=== PATIENT | female | born 1945 | race Caucasian/White ===

== ENCOUNTER 2017-02-27 22:45 | Inpatient (IN) | payer OTHER ==
[~2017-02-27] VITALS: Ht 162.6 cm; Wt 65.3 kg
[2017-02-27] MEDS ORDERED: FUROSEMIDE 40 MG/4 ML VIAL IV STA (22:52)
--- NOTE | 2017-02-27 22:55 | EMERGENCY ROOM VISIT NOTE ---
History Report prepared by Scribe: Florencia Naylor Under the Supervision of: Dr. Cedric Donald D.O. First contact with patient: 22:46 Stated Complaint: SOB History of Present Illness The patient is a 71 year old female who presents to the Emergency Room with complaints of worsening shortness of breath since 1899 this evening. She was brought to the ED via EMS. She states she called her son and told him that she was having trouble breathing, and he called an ambulance for her. Nursing reports she was diagnosed with CHF in November and had her Lasix discontinued last week. She does not wear Oxygen at home. She states she was "sick and vomiting recently" and reports she had a fever that has now resolved. She denies any chest pain. She also complains of feeling increasingly weak. Source of History: patient Onset: 1899 today Position: chest Timing: worsening Associated Symptoms: + fevers, + vomiting, + weakness Review of Systems See HPI for pertinent positives and negatives. A total of ten systems were reviewed and were otherwise negative. Past Medical & Surgical Medical Problems: (1) CHF (congestive heart failure) Social History Alcohol Use: none Drug Use: none Marital Status: Housing Status: lives with family Occupation Status: retired Current/Historical Medications Scheduled Aspirin (Aspirin Ec), 81 MG PO DAILY Ferrous Sulfate (Ferrous Sulfate), 325 MG PO BID Gabapentin (Neurontin), 1 CAP PO TID Linagliptin (Tradjenta), 1 TAB PO DAILY Metformin Hcl (Glucophage Ext Rel), 1 TAB PO DAILY Allergies Coded Allergies: No Known Allergies (Unverified , 02/27/17) Physical Exam Vital Signs Date Time Temp Pulse Resp B/P (MAP) Pulse Ox O2 Delivery O2 Flow Rate FiO2 02/27/17 23:02 112 02/27/17 22:55 92 Nasal Cannula 2.0 02/27/17 22:55 36.7 107 22 160/119 91 Nasal Cannula 2.0 02/27/17 22:55 92 Nasal Cannula 2.0 02/27/17 22:55 Nasal Cannula 2.0 91 Physical Exam GENERAL: Awake, alert, well-appearing, in no distress HENT: Normocephalic, atraumatic. Oropharynx unremarkable. EYES: Normal conjunctiva. Sclera non-icteric. NECK: Supple. No nuchal rigidity. FROM. No JVD. RESPIRATORY: Crackles. CARDIAC: Tachycardic heart rate, normal rhythm. Extremities warm and well perfused. Pulses equal. ABDOMEN: Soft, non-distended. No tenderness to palpation. No rebound or guarding. No masses. RECTAL: Deferred. MUSCULOSKELETAL: Chest examination reveals no tenderness. The back is symmetrical on inspection without obvious abnormality. There is no CVA tenderness to palpation. No joint edema. LOWER EXTREMITIES: Calves are equal size bilaterally and non-tender. Mild edema in LE, calves are nontender. No discoloration. NEURO: Normal sensorium. No sensory or motor deficits noted. SKIN: No rash or jaundice noted. Medical Decision & Procedures ER Provider Diagnostic Interpretation: X ray results as stated below per my interpretation and interpretation. CHEST X-RAY Pacemaker in place. Sternal wires present. Moderate CHF seen on X-Ray. Laboratory Results 02/27/17 23:00 Red Blood Count 4.64, Mean Corpuscular Volume 87.3, Mean Corpuscular Hemoglobin 29.3, Mean Corpuscular Hemoglobin Concent 33.6, Mean Platelet Volume 11.0, Neutrophils (%) (Auto) 76.9, Lymphocytes (%) (Auto) 15.4, Monocytes (%) (Auto) 5.2, Eosinophils (%) (Auto) 1.5, Basophils (%) (Auto) 0.7, Neutrophils # (Auto) 8.22, Lymphocytes # (Auto) 1.64, Monocytes # (Auto) 0.56, Eosinophils # (Auto) 0.16, Basophils # (Auto) 0.07 02/27/17 23:00 Test 02/27/17 23:00 White Blood Count 10.68 K/uL (4.8-10.8) Red Blood Count 4.64 M/uL (4.2-5.4) Hemoglobin 13.6 g/dL (12.0-16.0) Hematocrit 40.5 % (37-47) Mean Corpuscular Volume 87.3 fL (80-100) Mean Corpuscular Hemoglobin 29.3 pg (25-34) Mean Corpuscular Hemoglobin Concent 33.6 g/dl (32-36) Platelet Count 253 K/uL (130-400) Mean Platelet Volume 11.0 fL (7.4-10.4) Neutrophils (%) (Auto) 76.9 % Lymphocytes (%) (Auto) 15.4 % Monocytes (%) (Auto) 5.2 % Eosinophils (%) (Auto) 1.5 % Basophils (%) (Auto) 0.7 % Neutrophils # (Auto) 8.22 K/uL (1.4-6.5) Lymphocytes # (Auto) 1.64 K/uL (1.2-3.4) Monocytes # (Auto) 0.56 K/uL (0.11-0.59) Eosinophils # (Auto) 0.16 K/uL (0-0.5) Basophils # (Auto) 0.07 K/uL (0-0.2) RDW Standard Deviation 53.6 fL (36.4-46.3) RDW Coefficient of Variation 17.2 % (11.5-14.5) Immature Granulocyte % (Auto) 0.3 % Immature Granulocyte # (Auto) 0.03 K/uL (0.00-0.02) Anion Gap 13.0 mmol/L (3-11) Est Creatinine Clear Calc Drug Dose 40.6 ml/min Estimated GFR () 53.0 Estimated GFR (Non- 45.7 BUN/Creatinine Ratio 24.0 (10-20) Calcium Level 9.5 mg/dl (8.5-10.1) Total Bilirubin 1.0 mg/dl (0.2-1) Aspartate Amino Transf (AST/SGOT) 27 U/L (15-37) Alanine Aminotransferase (ALT/SGPT) 32 U/L (12-78) Alkaline Phosphatase 94 U/L (45-117) Troponin I 0.049 ng/ml (0-0.045) Pro-B-Type Natriuretic Peptide 24517 pg/ml (0-900) Total Protein 8.5 gm/dl (6.4-8.2) Albumin 4.1 gm/dl (3.4-5.0) Globulin 4.4 gm/dl (2.5-4.0) Albumin/Globulin Ratio 0.9 (0.9-2) Laboratory results reviewed by me Medications Administered Medications (Trade) Dose Ordered Sig/Karley Route Start Time Stop Time Status Last Admin Dose Admin Furosemide (Lasix Inj) 40 mg NOW STAT IV 02/27/17 22:52 02/27/17 22:54 DC 02/27/17 23:02 40 MG Aspirin (Aspirin Chew) 324 mg NOW STAT PO 02/27/17 23:21 02/27/17 23:23 DC 02/27/17 23:37 324 MG ECG Indication: SOB/dyspnea Rate (beats per minute): 114 Rhythm: sinus tachycardia Findings: no acute ischemic change, left axis deviation, other (paced rhythm) ED Course 2246: The patient was evaluated in room A12B. A complete history and physical exam was performed. 2252: Lasix 40 mg IV. 2321: Aspirin 324 mg PO. 0049: I [facility] the [facility] The patient will be further evaluated. Medical Decision The differential diagnoses considered include CHF, pneumonia, COPD, bronchitis and anemia. Patient was found to have an elevated BNP, almost positive troponin and a chest x-ray consistent with moderate congestive heart failure. Patient was started on IV Lasix, aspirin in the emergency department. Patient remained in stable condition throughout evaluation. The case was discussed with the [place] hospitalist for admission at 12:52 AM Medication Reconcilliation Current Medication List: was personally reviewed by me Blood Pressure Screening Patient's blood pressure: Elevated blood pressure Blood pressure disposition: Referred to PCP Consults Time Called: 44 Consulting Physician: [facility] Returned Call: 48 I discussed the patients case with Harvinder Cartwright. The patient will be further evaluated. Impression Primary Impression: Congestive heart failure Scribe Attestation The scribe's documentation has been prepared under my direction and personally reviewed by me in its entirety. I confirm that the note above accurately reflects all work, treatment, procedures, and medical decision making performed by me. Departure Information Dispostion Being Evaluated By Hospitalist Referrals No Doctor, Assigned (PCP)
[2017-02-27] MEDS ORDERED: FRRS300 PO (23:18)
[2017-02-27] MEDS ORDERED: ASPI81TA28 PO (23:18)
[2017-02-27] MEDS ORDERED: GABA-112 PO (23:18)
[2017-02-27] MEDS ORDERED: METF1TAB53 PO (23:19)
[2017-02-27] MEDS ORDERED: LINA1TAB PO (23:20)
[2017-02-27] MEDS ORDERED: ASPIRIN 81 MG CHEW PO STA (23:21)
[2017-02-27 23:43] LABS: BASO % 0.7 %; BASO ABS # 0.07 K/uL (0-0.2); COMPLETE YES; EOS % 1.5 %; HEMATOCRIT 40.5 % (37-47); IG% 0.3 %; LYMPH % 15.4 %; LYMPH ABS # 1.64 K/uL (1.2-3.4); MEAN CELL VOLUME 87.3 fL (80-100); MEAN CORPUSCULAR HEMOGLOBIN 29.3 pg (25-34); MEAN CORPUSCULAR HGB CONC 33.6 g/dl (32-36); MONO % 5.2 %; NEUT % 76.9 %; PLATELET COUNT 253 K/uL (130-400); RED BLOOD COUNT 4.64 M/uL (4.2-5.4); WHITE BLOOD COUNT 10.68 K/uL (4.8-10.8)
[2017-02-27 23:53] LABS: CALCIUM 9.5 mg/dl (8.5-10.1); CREATININE 1.18 mg/dl (0.60-1.20); POTASSIUM 4.1 mmol/L (3.5-5.1)
[2017-02-28] VITALS (7 sets, daily range): BP systolic 108–152; BP diastolic 60–70; PULSE 81–102; TEMP 36.5–37.3; O2SAT 91–95; Ht 162.6 cm; Wt 65.3 kg
[2017-02-28 00:37] LABS: ALB/GLOB RATIO 0.9 (0.9-2)
[2017-02-28 01:37] LABS: MAGNESIUM 2.3 mg/dl (1.8-2.4); THYROID STIMULATING HORMONE 3.37 uIu/ml (0.300-4.500)
[2017-02-28 01:38] LABS: PARTIAL THROMBOPLASTIN RATIO 1.1
[2017-02-28] MEDS ORDERED: LEVALBUTEROL/IPRATROPIUM NEB INH STA (01:52)
[2017-02-28] MEDS ORDERED: GLUCOSE 10 TABS/TUBE PO PRN (02:00)
[2017-02-28] MEDS ORDERED: DEXTROSE 50% 50 ML SYR IV PRN (02:00)
[2017-02-28] MEDS ORDERED: LEVALBUTEROL/IPRATROPIUM NEB INH PRN (02:00)
[2017-02-28] MEDS ORDERED: TRAMADOL HCL 50 MG TAB PO PRN (02:00)
[2017-02-28] MEDS ORDERED: NITROGLYCERIN 0.4 MG SL PER TAB CHARGE SL PRN (02:00)
[2017-02-28] MEDS ORDERED: GLUCOSE 40% GEL 15 GM TUBE PO PRN (02:00)
[2017-02-28] MEDS ORDERED: GLUCAGON FOR INJ 1 MG VIAL SQ PRN (02:00)
[2017-02-28] MEDS ORDERED: MoRPHine SULFATE 4 MG/ML 1 ML CARP\\VIAL IV PRN (02:00)
[2017-02-28] MEDS ORDERED: PROCHLORPERAZINE INJ 5 MG in SYRINGE 4 ML IV PRN (02:00)
[2017-02-28] MEDS ORDERED: ACETAMINOPHEN 325 MG TAB PO PRN (02:00)
[2017-02-28] MEDS ORDERED: INSULIN ASPART 100 UNITS/ML 3 ML PEN SC STA (02:10)
[2017-02-28] MEDS ORDERED: INSULIN GLARGINE SOLOSTAR 100 UNITS/ML 3 ML PEN SC STA (02:10)
[2017-02-28] MEDS ORDERED: LEVALBUTEROL 1.25MG/0.5ML NEB INH STA (02:11)
[2017-02-28] MEDS ORDERED: IPRATROPIUM BROMIDE NEB SOLN 0.02% 2.5 ML VIAL INH STA (02:11)
[2017-02-28] MEDS ORDERED: METOPROLOL TARTRATE 25 MG TAB PO STA (02:12)
[2017-02-28] MEDS ORDERED: LEVALBUTEROL 1.25MG/0.5ML NEB INH PRN (02:15)
[2017-02-28] MEDS ORDERED: IPRATROPIUM BROMIDE NEB SOLN 0.02% 2.5 ML VIAL INH PRN (02:15)
[2017-02-28] MEDS: IPRATROPIUM BROMIDE NEB SOLN 0.02% 2.5 ML VIAL INH SCH ×3 (02:31→14:34)
[2017-02-28] MEDS: LEVALBUTEROL 1.25MG/0.5ML NEB INH SCH ×3 (02:31→14:34)
--- NOTE | 2017-02-28 03:45 | HISTORY & PHYSICAL EXAMINATION ---
DATE OF ADMISSION: 02/28/2017 PRIMARY CARE PHYSICIAN: [facility]. CHIEF COMPLAINT: Shortness of breath. HISTORY OF PRESENT ILLNESS: History obtained from patient and records. Medical history is significant for chronic systolic heart failure secondary to ischemic cardiomyopathy, EF of 45% sp ICD from a 2D echo from 2000, CAD status CABG, hypertension, hyperlipidemia, DM2 on oral meds, past tobacco abuse Patient was seen by her lung specialist 2 weeks ago. Lasix stopped because it was felt it was not needed anymore. Yesterday patient noted increasing shortness of breath even at rest, no swelling, no chest pain. Usual cough symptoms. Patient brought to Emergency Room. Received Lasix for CHF. Currently feeling better. MEDICAL HISTORY: As above. Her lead software engineer is Dr. Villavicencio. SURGERIES: She had CABG, ICD placement, hysterectomy. HOME MEDICATIONS: aspirin, ferrous sulfate, Neurontin, linagliptin, metformin. (Partial list as patient cannot recall rest of medications.) ALLERGIES: No drug allergies. FAMILY HISTORY: Heart disease. PERSONAL AND SOCIAL HISTORY: Past tobacco, no chronic intake of alcoholic beverages. Retired factory employee. REVIEW OF SYSTEMS: As per HPI, all 10 systems reviewed. All other ROS negative. PHYSICAL EXAMINATION: VITAL SIGNS: Blood pressure was noted to be 160/119, later 130/86, pulse rate 105, RR 20, temperature 36.7, sats 92 on 2L nasal cannula. GENERAL: Noted to be slightly anxious, no respiratory distress. SKIN: Normal color. Warm. HEENT: [place] palpebral conjuctivae. No ptosis, dry buccal mucosa Nasal cannula in place. NECK: JVD, supple. No tenderness. CHEST: Decreased breath sounds. No tenderness. HEART: RRR, Systolic murmur. ABDOMEN: Soft, nontender. EXTREMITIES: Minimal LE edema, no tenderness. No gross deformity. NEUROLOGIC: Coherent. No gross focality. LABORATORY DATA: Hemoglobin was noted to be 13.6, hematocrit 40.5, white cell count 10.68, platelets noted to be 250. Sodium noted to be 140, potassium 4.1, chloride 110, CO2 18, BUN 22, creatinine 1.18, glucose 183. Troponin 0.049. BNP 15,000. EKG as per my interpretation, rate 115, sinus tachycardia, LAD, LAFB, right bundle branch block, LVH, ST depression in the lateral leads, PRWP Chest x-ray as per my interpretation cardiomegaly, CHF ASSESSMENT: 1. Acute hypoxemic respiratory failure secondary to decompensated heart failure hx ischemic cardiomyopathy EF of 35-45%, (TTE 2000) hx ICD History CAD status post CABG home Lasix discontinued a few weeks ago by patient's solderer furnace. 2. troponin elevation secondary to above 3. HTN, initially elevated upon arrival at the ER, currently improved after Lasix administration 4. DM2 on oral meds. Elevated serum glucose on admission blood work. Unknown baseline control. 5. Past tobacco abuse. PLAN: PCU supplemental O2 diuretic therapy. Low-dose beta aretha until complete list of home meds available for reconciliation Follow troponin. strict IOs, daily weights, CHF education TTE, cardiology consult RE decompensated heart failure Obtain recent outpatient cardiology, PCP records. ISS BG goal 140-180. May need basal Lantus to attain goal. Check hemoglobin A1c. DVT prophylaxis, Lovenox subQ. Code status level 3. Okay with CPR, no intubation. MTDD
[2017-02-28 03:55] LABS: INR 1.1 (0.9-1.1)
[2017-02-28] MEDS ORDERED: PERFLUTREN LIPID MICROSPHERE (DEFINITY) IV ONE (06:47)
[2017-02-28 06:55] LABS: BASO % 0.6 %; BASO ABS # 0.05 K/uL (0-0.2); COMPLETE YES; EOS % 0.8 %; HEMATOCRIT 39.8 % (37-47); IG% 0.1 %; LYMPH % 26.7 %; LYMPH ABS # 2.23 K/uL (1.2-3.4); MEAN CELL VOLUME 87.9 fL (80-100); MEAN CORPUSCULAR HEMOGLOBIN 28.5 pg (25-34); MEAN CORPUSCULAR HGB CONC 32.4 g/dl (32-36); MEAN PLATELET VOLUME 10.5 fL (7.4-10.4); MONO % 5.9 %; NEUT % 65.9 %; PLATELET COUNT 245 K/uL (130-400); RED BLOOD COUNT 4.53 M/uL (4.2-5.4); WHITE BLOOD COUNT 8.36 K/uL (4.8-10.8)
[2017-02-28 07:31] LABS: BUN/CREATININE RATIO 27.1 (10-20); CALCIUM 9.3 mg/dl (8.5-10.1); CREATININE 1.13 mg/dl (0.60-1.20); POTASSIUM 3.8 mmol/L (3.5-5.1)
[2017-02-28 07:44] LABS: CHOLESTEROL/HDL RATIO 3.6
--- NOTE | 2017-02-28 08:17 | DIAGNOSTIC IMAGING REPORT ---
SINGLE VIEW CHEST CLINICAL HISTORY: Dyspnea. FINDINGS: An AP, portable, upright chest radiograph is obtained. No prior studies are available for comparison at the time of dictation. The examination is degraded by portable technique and patient rotation. A 2-lead cardiac AICD partially obscures the left mid chest. The patient is status post midline sternotomy. The heart is enlarged. There is pulmonary vascular congestion with mild interstitial edema. Trace pleural effusions are suspected. No pneumothorax is seen. The skeletal structures are osteopenic. The bony thorax is grossly intact. IMPRESSION: 1. Cardiomegaly and AICD. There is evidence of congestive failure and interstitial edema. 2. Suspect trace pleural effusions. Electronically signed by: Narinder Lewis M.D. 02/28/2017 8:15 AM Dictated Date/Time: 02/28/2017 8:14 AM
[2017-02-28] MEDS: INSULIN ASPART 100 UNITS/ML 3 ML PEN SC SCH ×4 (08:28→20:35)
[2017-02-28] MEDS: FUROSEMIDE INJ 40 MG in SYRINGE 0 ML IV SCH ×2 (08:29→20:35)
[2017-02-28] MEDS: FERROUS SULFATE 325 MG TAB PO SCH ×2 (08:32→20:34)
[2017-02-28] MEDS: ASPIRIN 81 MG ECTAB PO SCH (08:32)
[2017-02-28] MEDS: ENOXAPARIN 40 MG/0.4 ML SYR SC SCH (08:33)
[2017-02-28] MEDS ORDERED: LEVALBUTEROL/IPRATROPIUM NEB INH SCH (09:00)
--- NOTE | 2017-02-28 10:58 | ECHOCARDIOGRAM REPORT ---
*NOTICE TO RECEIVING LIBERTARIAN AGENCY This information is strictly Confidential and protected under [place] law. [place] law prohibits you from making any further disclosure of this information unless further disclosure is expressly permitted by the written consent of the person to whom it pertains or is authorized by law. A general authorization for the release of medical or other information is not sufficient for this purpose. Hospital accepts no responsibility if the information is made available to any other person, INCLUDING THE PATIENT. Interpretation Summary * Name: MAYDA BARTLETT Study Date: 02/28/2017 06:18 AM BP: 152/67 mmHg * Patient Location: .2E\S\E205\S\1 HR: 102 * : 1945 (M/d/yyyy) Gender: Female Height: 63 in * Age: 71 yrs Ethnicity: [place] Weight: 160 lb * Ordering Physician: Jj Bellamy * Performed By: Geovanna Cano RDCS * * Reason For Study: CHF * BSA: 1.8 m2 * The study was technically adequate. * There is no comparison study available. * -- Conclusions -- * Left ventricular systolic function is severely reduced. * Ejection Fraction = 15-20%. * There is mild concentric left ventricular hypertrophy. * There is severe global hypokinesis of the left ventricle. * The right ventricle is moderately dilated. * The right ventricular systolic function is moderately reduced. * The left atrium is moderately dilated. * There is moderate mitral regurgitation. * There is moderate tricuspid regurgitation. * The estimated systolic PAP is 42mmHg. Procedure Details * A complete two-dimensional transthoracic echocardiogram was performed (2D, M-mode, Doppler and color flow Doppler). Left Ventricle * The left ventricle is moderately dilated. * There is no thrombus. * There is mild concentric left ventricular hypertrophy. * Left ventricular systolic function is severely reduced. * Ejection Fraction = 15-20%. * There is severe global hypokinesis of the left ventricle. Right Ventricle * The right ventricle is moderately dilated. * There is a pacemaker lead in the right ventricle. * The right ventricular systolic function is moderately reduced. Atria * The left atrium is moderately dilated. * The right atrium is mildly dilated. Mitral Valve * The mitral valve leaflets appear thickened, but open well. * There is no mitral valve stenosis. * There is moderate mitral regurgitation. Tricuspid Valve * The tricuspid valve is not well visualized, but is grossly normal. * There is no tricuspid stenosis. * There is moderate tricuspid regurgitation. * The estimated systolic PAP is 42mmHg. Aortic Valve * The aortic valve is trileaflet. * No hemodynamically significant valvular aortic stenosis. * There is no significant aortic regurgitation. Pulmonic Valve * The pulmonary valve is not well seen, but the Doppler examination is normal without significant regurgitation or stenosis. Great Vessels * The aortic root is normal size. Pericardium/Pleural * There is no pericardial effusion. Left Ventricular Diastolic Function * Pulse wave TDI of the anterior and posterior mitral annulas demonstrates abnormal LV relaxation MMode 2D Measurements and Calculations IVSd 1.2 cm IVSs 1.7 cm LVIDd 5.2 cm LVIDs 4.2 cm LVPWd 1.2 cm LVPWs 1.1 cm IVS/LVPW 0.96 FS 18.7 % EDV(Teich) 129.0 ml ESV(Teich) 79.5 ml EF(Teich) 38.4 % EDV(cubed) 139.9 ml ESV(cubed) 75.2 ml EF(cubed) 46.3 % % IVS thick 42.5 % % LVPW thick -7.65 % LV mass(C)d 246.7 grams LV mass(C)dI 140.3 grams/m\S\2 LV mass(C)s 225.4 grams LV mass(C)sI 128.1 grams/m\S\2 SV(Teich) 49.5 ml SI(Teich) 28.1 ml/m\S\2 SV(cubed) 64.7 ml SI(cubed) 36.8 ml/m\S\2 ACS 1.0 cm LA dimension 4.6 cm asc Aorta Diam 2.5 cm LVOT diam 2.1 cm LVOT area 3.4 cm\S\2 LVAd ap4 40.8 cm\S\2 LVLd ap4 8.1 cm EDV(MOD-sp4) 167.4 ml EDV(sp4-el) 175.7 ml LVAs ap4 34.2 cm\S\2 LVLs ap4 7.6 cm ESV(MOD-sp4) 125.1 ml ESV(sp4-el) 130.3 ml EF(MOD-sp4) 25.2 % EF(sp4-el) 25.8 % LVAd ap2 42.9 cm\S\2 LVLd ap2 8.0 cm EDV(MOD-sp2) 188.6 ml EDV(sp2-el) 196.2 ml LVAs ap2 35.6 cm\S\2 LVLs ap2 7.6 cm ESV(MOD-sp2) 139.5 ml ESV(sp2-el) 141.1 ml EF(MOD-sp2) 26.1 % EF(sp2-el) 28.1 % LVLd %diff -1.15 % EDV(MOD-bp) 178.4 ml LVLs %diff -0.10 % ESV(MOD-bp) 133.1 ml EF(MOD-bp) 25.4 % SV(MOD-sp4) 42.3 ml SI(MOD-sp4) 24.0 ml/m\S\2 SV(MOD-sp2) 49.2 ml SI(MOD-sp2) 27.9 ml/m\S\2 SV(MOD-bp) 45.3 ml SI(MOD-bp) 25.8 ml/m\S\2 SV(sp4-el) 45.3 ml SI(sp4-el) 25.8 ml/m\S\2 SV(sp2-el) 55.1 ml SI(sp2-el) 31.3 ml/m\S\2 Doppler Measurements and Calculations MV E max tyson 101.9 cm/sec MV dec time 0.13 sec Ao V2 max 104.8 cm/sec Ao max PG 4.4 mmHg Ao max PG (full) 3.3 mmHg MARTHA(V,A) 1.7 cm\S\2 MARTHA(V,D) 1.7 cm\S\2 LV V1 max PG 1.0 mmHg LV V1 max 51.2 cm/sec MR max tyson 459.5 cm/sec MR max PG 84.5 mmHg MR mean tyson 317.1 cm/sec MR mean PG 47.2 mmHg MR VTI 136.5 cm PA V2 max 46.1 cm/sec PA max PG 0.85 mmHg TR max tyson 332.0 cm/sec
[2017-02-28] MEDS ORDERED: LISINOPRIL 5 MG TAB PO ONE (12:15)
--- NOTE | 2017-02-28 12:21 | CARDIOLOGY CONSULTATION ---
DATE OF CONSULTATION: 02/28/2017 REFERRING PHYSICIAN: Dr. Jj Bellamy. REASON FOR CONSULTATION: Congestive heart failure. HISTORY OF PRESENT ILLNESS: Ms. Castro is a 71-year-old female who presented to the Emergency Department with worsening shortness of breath and orthopnea. The patient also reports profound weakness. She was brought to the ER by family. She is unknown to the undersigned. There are scant medical records available. The patient was treated with intravenous furosemide and her symptoms have markedly improved. Her chest x-ray demonstrates pulmonary edema as well as presence of prior sternotomy and ICD placement. Resting 2D transthoracic echo demonstrates severe ischemic cardiomyopathy with ejection fraction of 15-20%, moderate mitral regurgitation, moderate tricuspid regurgitation, and mild pulmonary hypertension. The patient reports a history of coronary artery bypass grafting in 1996. She has been followed by broker assistant in [place], Dr. Villavicencio. She is a poor historian. She does not recall details of her current medications or medical history. States she was evaluated by her industrial x ray operator approximately 2 weeks ago and 2 diuretics were discontinued at that time. Denies weight gain. Denies chest discomfort or palpitations. No dysrhythmias on telemetry which demonstrates sinus rhythm and an underlying left bundle branch block, occasional ventricular pacing. States she is currently feeling much better after diuretic therapy. Offers no other complaints at this time. REVIEW OF SYSTEMS: The pertinent positive noted above, a comprehensive 10-system review is otherwise negative. PAST MEDICAL HISTORY: 1. Congestive heart failure. 2. Pneumonia. 3. COPD. 4. Coronary artery disease. 5. Cardiomyopathy. 6. Diabetes. PAST SURGICAL HISTORY: 1. Coronary artery bypass grafting in 1996. 2. ICD implantation. SOCIAL HISTORY: Former tobacco abuse. She is and lives with her family. FAMILY HISTORY: Negative for premature CAD or sudden cardiac , however, noncontributory given patient's advanced age. ALLERGIES: No known drug allergies. CURRENT OUTPATIENT MEDICATIONS: 1. Aspirin 81 mg daily. 2. Ferrous sulfate 325 twice daily. 3. Neurontin 1 cap t.i.d. 4. Tradjenta 1 tablet daily. 5. Metformin daily. IMAGING DATA: ECG on admission demonstrates sinus tachycardia with a right bundle branch block and a left anterior fascicular block. LABORATORY DATA: Initial troponin 0.57. Repeat troponin 0.080. ProBNP 15,595. Sodium 139, potassium 3.8, chloride 105, CO2 24, BUN is 31, creatinine is 1.13. White blood cell count 8.36, hemoglobin is 12.9, platelet count is 245. Chest x-ray demonstrates congestive heart failure. PHYSICAL EXAMINATION: VITAL SIGNS: Temperature is 36.5 degrees centigrade, pulse 85 beats per minute and regular, respiratory rate is 18 breaths per minute, blood pressure 122/60, SAO2 is 93% on 2 liters nasal cannula. GENERAL: NAD, hard of hearing, poor historian. She is pleasant and cooperative. HEENT: Mucous membranes are moist. No scleral icterus. Conjunctivae pink. NECK: Supple without JVD or HJR. No carotid bruit. HEART: Regular with a normal S1 and S2. There is a 1-2/6 holosystolic murmur heard best at left ventricular apex as well as left sternal border. LUNGS: Demonstrates scant crackles at the bases bilaterally. ABDOMEN: Soft and nontender. No rebound or guarding. Normal bowel sounds. EXTREMITIES: Warm and dry. There is no clubbing, cyanosis, or edema. There is 2/4 posterior tibial pulses noted bilaterally. NEUROLOGIC: Demonstrates no focal deficit. FINAL IMPRESSION: 1. Acute decompensated systolic heart failure secondary to recent discontinuation of diuretic therapy. 2. Minimally elevated troponin secondary to acute decompensated systolic heart failure secondary to recent discontinuation of diuretic therapy. 3. Ischemic cardiomyopathy with ejection fraction of 15-20%, status post implantable cardioverter defibrillator implantation. 4. History of chronic coronary artery disease and prior coronary artery bypass grafting in 1996. 5. Diabetes type 2. 6. Hypertension - controlled. 7. Former tobacco use. PLAN AND RECOMMENDATIONS: Continue intravenous Lasix 40 mg b.i.d. Follow daily weight, fluid balance, electrolytes, and renal function closely. I am adding lisinopril 5 mg daily. Agree with addition of low dose beta-aretha, metoprolol 12.5 mg b.i.d. Continue aspirin. Statin therapy is indicated as well. We will await records from outpatient physicians. Will continue to follow during hospitalization. Thank you for allowing me to take part in the care of your patient.
[2017-02-28] MEDS: METOPROLOL TARTRATE 25 MG TAB PO SCH (20:35)
[2017-03-01 00:01] VITALS: BP 109/59; PULSE 83; TEMP 37.1; O2SAT 94
[2017-03-01 03:20] VITALS: BP 123/68; PULSE 75; TEMP 37.3; O2SAT 96
[2017-03-01 07:17] VITALS: BP 119/53; PULSE 80; TEMP 37.2; O2SAT 92
[2017-03-01 07:55] LABS: BUN/CREATININE RATIO 28.2 (10-20); CALCIUM 9.7 mg/dl (8.5-10.1); CREATININE 1.03 mg/dl (0.60-1.20); POTASSIUM 3.2 mmol/L (3.5-5.1)
[2017-03-01] MEDS: METOPROLOL TARTRATE 25 MG TAB PO SCH (08:06)
[2017-03-01] MEDS: ASPIRIN 81 MG ECTAB PO SCH (08:06)
[2017-03-01] MEDS: FERROUS SULFATE 325 MG TAB PO SCH (08:06)
[2017-03-01] MEDS: ENOXAPARIN 40 MG/0.4 ML SYR SC SCH (08:07)
[2017-03-01] MEDS: INSULIN ASPART 100 UNITS/ML 3 ML PEN SC SCH ×3 (08:11→17:30)
[2017-03-01 08:26] LABS: ESTIMATED AVERAGE GLUCOSE 154 mg/dl; HA1C FLAG Normal (Normal)
[2017-03-01] MEDS ORDERED: LISINOPRIL 5 MG TAB PO SCH (09:00)
[2017-03-01] MEDS ORDERED: INSULIN GLARGINE SOLOSTAR 100 UNITS/ML 3 ML PEN SC SCH (09:00)
[2017-03-01] MEDS ORDERED: POTASSIUM CHLORIDE 10 MEQ TABCR PO ONE (11:00)
[2017-03-01 12:12] VITALS: BP 103/62; PULSE 75; TEMP 36.7; O2SAT 92
--- NOTE | 2017-03-01 14:59 | CARDIOLOGY PROGRESS NOTE ---
DATE: 03/01/2017 SUBJECTIVE: The patient is seen at the bedside, doing much better today. She has diuresed approximately 4 liters since admission. Her weight is down approximately 7 kilograms. The patient is requesting discharge. The patient's pharmacy was contacted earlier today for an accurate medication list. The patient denies palpitations, chest pain, shortness of breath, orthopnea, PND, or lower extremity edema. REVIEW OF SYSTEMS: The pertinent noted above. Four-system review including cardiovascular, pulmonary, gastroenterology, neurologic systems are otherwise negative. MEDICATIONS: Reviewed via EMR. Please see list for details. LABORATORY DATA: Sodium 137, potassium 3.2, chloride 102, CO2 26, BUN is 29, creatinine is 1.03. White blood cell count 8.36, hemoglobin is 12.9, platelet count is 245. PHYSICAL EXAMINATION: VITAL SIGNS: Temperature is 36.7 degrees centigrade, pulse 75 beats per minute and regular, respiratory rate is 20 breaths per minute, blood pressure 103/62. SaO2 is 92% on room air. GENERAL: NAD, awake, alert and oriented x3. HEENT: Mucous membranes moist. No scleral icterus. Conjunctivae pink. NECK: Supple without JVD or HJR. No carotid bruit. HEART: Regular with a normal S1 and S2. There is a 2/6 holosystolic murmur heard best at the apex. LUNGS: Clear bilaterally without rales, rhonchi or wheeze. ABDOMEN: Soft, nontender. No rebound or guarding. Normal bowel sounds. EXTREMITIES: Warm and dry. There is no clubbing, cyanosis, or edema. 2/4 posterior tibial pulses are noted. NEUROLOGIC: No focal motor deficit. FINAL IMPRESSION: 1. Acute decompensated systolic heart failure secondary to recent discontinuation of diuretic therapy -- volume status improved. The patient appears euvolemic. 2. Minimally elevated troponin secondary to acute decompensated heart failure. 3. Ischemic cardiomyopathy with ejection fraction of 15%-20%, status post implantable cardioverter-defibrillator implantation. 4. Chronic coronary artery disease with history of prior coronary artery bypass grafting in 1996. 5. Diabetes. 6. Hypertension. 7. Former tobacco abuse. PLAN AND RECOMMENDATIONS: Intravenous Lasix will be discontinued. Per review of outpatient records, the patient was previously taking 40 mg of Lasix, 25 mg of Aldactone, 25 mg of carvedilol twice daily, as well as 25 mg of losartan daily. Current medications including lisinopril and metoprolol will be discontinued. I will restart Lasix 40 mg daily; however, Aldactone will be restarted at a reduced dose, 12.5 mg daily. Recommend repeat basic metabolic panel in 1 week. Carvedilol and losartan will be restarted as well. No further inpatient cardiac testing or intervention at this time. Recommend close cardiology followup with her outpatient physician, Dr. Villavicencio within 2 weeks. All questions answered to the patient's satisfaction. We will sign off. Please call with questions.
[2017-03-01] MEDS ORDERED: CARVEDILOL 25 MG TAB PO ONE (15:15)
[2017-03-01 15:27] VITALS: BP 101/62; PULSE 85; TEMP 36.7; O2SAT 91
--- NOTE | 2017-03-01 17:07 | Discharge Instructions ---
Discharge Instructions Date of Service Mar 01, 2017. Admission Reason for Admission: Congestive Heart Failure Discharge Discharge Diagnosis / Problem: ACUTE ON CHRONIC CHF Discharge Goals Goal(s): Decrease discomfort, Increase independence, Improve disease control, Diagnostic testing, Therapeutic intervention Activity Recommendations Activity Limitations: resume your previous activity . Instructions / Follow-Up Instructions / Follow-Up NEED TO ESTABLISH CARE WITH A FAMILY PHYSICIAN IT IS VERY IMPORTANT THAT YOU HAVE REGULAR FOLLOW UP CARDIOLOGY FOLLOW UP WITH DR BAUER PHONE # [phone] PLEASE CALL OFFICE FOR APPOINTMENT Call your Primary Care doctor if any of the following symptoms or problems start or get worse: * Shortness of breath or difficulty breathing * Wake up at night short of breath * Chest pain * Cough * Swelling of your hands, feet, or legs * More fatigued or tired with your normal activity * Palpitations - sudden fast heart beats WEIGHT * Weigh yourself every morning after using the bathroom. * Use the same scale. * Wear the same amount of clothing. * Write your weight down on a chart. * Call your Primary Care doctor if you gain more than 2-3 pounds in 1-2 days. MEDICATIONS * Use this discharge instruction sheet for medication instructions. * Take your medications at the time your doctor ordered. * Do not skip a dose of your medicines. * If you miss a dose of medicine, take it as soon as possible, but DO NOT DOUBLE A DOSE. * Read your medicine information when you get home. * Know all of the side effects of your medicine. If in doubt, ask your pharmacist * Call your Primary Care doctor's office if you have any side effects. * Be sure all of your doctors know what medicine and herbs you take (including cold, flu, and herbal medicine). Take the following with you to your follow-up doctor appointments: * Weight Chart * Medication List * List of questions Do not drink excessive alcohol, beer or wine. Current Hospital Diet Patient's current hospital diet: AHA Diet (Heart Healthy), Diabetes Type 2 Diet Discharge Diet Recommended Diet: AHA Diet (Heart Healthy), Diabetes Type 2 Diet Pending Studies Studies pending at discharge: no Laboratory Results Hemoglobin A1c Test 02/27/17 23:00 Range/Units Estimated Average Glucose 154 mg/dl Hemoglobin A1c 7.0 H 4.5-5.6 % Lipid Panel Test 02/28/17 06:14 Range/Units Triglycerides Level 239 H 0-150 mg/dl Cholesterol Level 96 0-200 mg/dl HDL Cholesterol 27 mg/dl Cholesterol/HDL Ratio 3.6 LDL Cholesterol, Calculated 21 mg/dl Medical Emergencies . Who to Call and When: Call 911 or go to the Emergency Room if: * If at any time you feel your situation is an emergency * You have tightness or pain in your chest that does not go away with rest or Nitroglycerin * You are very short of breath even with rest . Non-Emergent Contact Non-Emergency issues call your: Primary Care Provider . . "Provider Documentation" section prepared by Duyen Arechiga. . VTE Core Measure Inpt VTE Proph given/why not?: Unfractionated heparin SQ
[2017-03-01 17:55] VITALS: BP 101/62; PULSE 85; TEMP 36.7; O2SAT 91
[2017-03-01] MEDS ORDERED: PARO40TA3 PO (18:09)
[2017-03-01] MEDS ORDERED: CARV25TA2 PO (18:17)
[2017-03-01] MEDS ORDERED: METF500T5 PO (18:17)
[2017-03-01] MEDS ORDERED: FRRS300 PO (18:17)
[2017-03-01] MEDS ORDERED: NRN300 PO (18:17)
[2017-03-01] MEDS ORDERED: EZET10TA47 PO (18:17)
[2017-03-01] MEDS ORDERED: SIMV80TA5 PO (18:17)
[2017-03-01] MEDS ORDERED: OMEP20TA PO (18:17)
[2017-03-01] MEDS ORDERED: LINA1TAB PO (18:17)
[2017-03-01] MEDS ORDERED: CZR25 PO (18:17)
[2017-03-01] MEDS ORDERED: SPR25 PO (18:20)
[2017-03-01] MEDS ORDERED: ASPEC81 PO (18:20)
[2017-03-01] MEDS ORDERED: LSX40 PO (18:20)
--- NOTE | 2017-03-01 20:09 | Discharge Summary ---
Discharge Summary Date of Service Mar 01, 2017. Discharge Summary Admission Date: Feb 28, 2017 at 01:09 Discharge Date: Mar 01, 2017 Discharge Disposition: Home with services Principal Diagnosis: ACUTE ON CHRONIC CHF Procedures: ECHO : Left ventricular systolic function is severely reduced. Ejection Fraction = 15-20%. There is mild concentric left ventricular hypertrophy. There is severe global hypokinesis of the left ventricle. The right ventricle is moderately dilated. The right ventricular systolic function is moderately reduced. The left atrium is moderately dilated. There is moderate mitral regurgitation. There is moderate tricuspid regurgitation. The estimated systolic PAP is 42mmHg. Consultations: [facility] DR DURON Medication Reconciliation New Medications: Aspirin (Aspirin EC Low Dose) 81 Mg Ectab 81 MG PO DAILY for 30 Days, #30 TABS 3 Refills Furosemide (Furosemide) 40 Mg Tab 40 MG PO QAM for 30 Days, #30 TAB 3 Refills Spironolactone (Spironolactone) 25 Mg Tab 12.5 MG PO QAM for 30 Days, #15 TAB 2 Refills Continued Medications: Carvedilol (Coreg) 25 Mg Tab 1 TAB PO BID for 90 Days, #180 TAB 1 Refill Ezetimibe (Zetia) 10 Mg Tab 10 MG PO HS, TAB Ferrous Sulfate (Ferrous Sulfate) 325 Mg Tab 1 TAB PO BID Gabapentin (Gabapentin) 300 Mg Cap 1 TAB PO TID Linagliptin (Tradjenta) 5 Mg Tab 1 TAB PO DAILY for 90 Days, #90 TAB 1 Refill Losartan Potassium (Losartan Potassium) 25 Mg Tab 1 TAB PO DAILY Metformin Hcl Er (Glucophage Er) 500 Mg Tab 500 MG PO DAILY, TAB Omeprazole (Omeprazole) 20 Mg Tab 1 TAB PO DAILYBB for 90 Days, TAB 1 Refill Paroxetine Hcl (Paxil) 40 Mg Tab 1 TAB PO DAILY for 30 Days, #30 TAB 5 Refills Simvastatin (Zocor) 80 Mg Tab 80 MG PO QPM, TAB Admission Information HPI (per Admitting provider): DATE OF ADMISSION: 02/28/2017 PRIMARY CARE PHYSICIAN: [facility]. CHIEF COMPLAINT: Shortness of breath. HISTORY OF PRESENT ILLNESS: History obtained from patient and records. Medical history is significant for chronic systolic heart failure secondary to ischemic cardiomyopathy, EF of 45% sp ICD from a 2D echo from 2000, CAD status CABG, hypertension, hyperlipidemia, DM2 on oral meds, past tobacco abuse Patient was seen by her lung specialist 2 weeks ago. Lasix stopped because it was felt it was not needed anymore. Yesterday patient noted increasing shortness of breath even at rest, no swelling, no chest pain. Usual cough symptoms. Patient brought to Emergency Room. Received Lasix for CHF. Currently feeling better. MEDICAL HISTORY: As above. Her regional airline pilot is Dr. Villavicencio. SURGERIES: She had CABG, ICD placement, hysterectomy. HOME MEDICATIONS: aspirin, ferrous sulfate, Neurontin, linagliptin, metformin. (Partial list as patient cannot recall rest of medications.) ALLERGIES: No drug allergies. FAMILY HISTORY: Heart disease. PERSONAL AND SOCIAL HISTORY: Past tobacco, no chronic intake of alcoholic beverages. Retired factory employee. REVIEW OF SYSTEMS: As per HPI, all 10 systems reviewed. All other ROS negative. Physical Exam (per Admitting): PHYSICAL EXAMINATION: VITAL SIGNS: Blood pressure was noted to be 160/119, later 130/86, pulse rate 105, RR 20, temperature 36.7, sats 92 on 2L nasal cannula. GENERAL: Noted to be slightly anxious, no respiratory distress. SKIN: Normal color. Warm. HEENT: [place] palpebral conjuctivae. No ptosis, dry buccal mucosa Nasal cannula in place. NECK: JVD, supple. No tenderness. CHEST: Decreased breath sounds. No tenderness. HEART: RRR, Systolic murmur. ABDOMEN: Soft, nontender. EXTREMITIES: Minimal LE edema, no tenderness. No gross deformity. NEUROLOGIC: Coherent. No gross focality. Hospital Course feels much better today , no complain of SOB , LACEY no orthopnea, eager to go home P/E: GEN elderly female, no apparent distress , very pleasant HEENT -sclera non icteric , PERRLA LUNGS clear to auscultate. no wheeze or rales HT regular S1/S2 , no JVD, no ankle edema ABDOMEN soft, non tender NEURO: hard of hearing , no focal deficit ACUTE ON CHRONIC CHF WITH SEVERE SYSTOLIC DYSFUNCTION : presented with SOB , LACEY hx of severe ischemic cardiomyopathy symptom improved with IV diuresis ECHO shows severely reduced LV function with EF of 15-20% appreciate Cardiology eval added Lasix and Aldactone pt will be continued with Losartan and Coreg SOB has resolved, able to ambulate in room with out discomfort stable to be discharge home today scripts for new meds sent to Pt's pharmacy d/w son pt fills her own medication -pt has hearing loss , increased forgetfulness will be helpful to have home health nurse visit to assure pill box is filled accurately HTN : cont Coreg , Losartan added Lasix and Aldactone TYPE 2 DM : pt will be resumed her out pt meds -Metformin /Tradjenta ( Linagliptin ) 5 mg daily DNI : NO MECHANICAL VENTILATION DVT PROPHYLAXIS : SUB q heparin DISPOSITION : Discharge home today pt will need to establish care with family physician Cardiology follow up with Dr Rothman pt lives by her self will benefit with Home Health Visiting nurse Total time spent on discharge = 40 MINS This includes examination of the patient, discharge planning, medication reconciliation, and communication with other providers. Discharge Instructions DI: CHF v4 Discharge Instructions Date of Service Mar 01, 2017. Admission Reason for Admission: Congestive Heart Failure Discharge Discharge Diagnosis / Problem: ACUTE ON CHRONIC CHF Discharge Goals Goal(s): Decrease discomfort, Increase independence, Improve disease control, Diagnostic testing, Therapeutic intervention Activity Recommendations Activity Limitations: resume your previous activity . Instructions / Follow-Up Instructions / Follow-Up NEED TO ESTABLISH CARE WITH A FAMILY PHYSICIAN IT IS VERY IMPORTANT THAT YOU HAVE REGULAR FOLLOW UP CARDIOLOGY FOLLOW UP WITH DR VILLAVICENCIO PHONE # [phone] PLEASE CALL OFFICE FOR APPOINTMENT Call your Primary Care doctor if any of the following symptoms or problems start or get worse: * Shortness of breath or difficulty breathing * Wake up at night short of breath * Chest pain * Cough * Swelling of your hands, feet, or legs * More fatigued or tired with your normal activity * Palpitations - sudden fast heart beats WEIGHT * Weigh yourself every morning after using the bathroom. * Use the same scale. * Wear the same amount of clothing. * Write your weight down on a chart. * Call your Primary Care doctor if you gain more than 2-3 pounds in 1-2 days. MEDICATIONS * Use this discharge instruction sheet for medication instructions. * Take your medications at the time your doctor ordered. * Do not skip a dose of your medicines. * If you miss a dose of medicine, take it as soon as possible, but DO NOT DOUBLE A DOSE. * Read your medicine information when you get home. * Know all of the side effects of your medicine. If in doubt, ask your pharmacist * Call your Primary Care doctor's office if you have any side effects. * Be sure all of your doctors know what medicine and herbs you take (including cold, flu, and herbal medicine). Take the following with you to your follow-up doctor appointments: * Weight Chart * Medication List * List of questions Do not drink excessive alcohol, beer or wine. Current Hospital Diet Patient's current hospital diet: AHA Diet (Heart Healthy), Diabetes Type 2 Diet Discharge Diet Recommended Diet: AHA Diet (Heart Healthy), Diabetes Type 2 Diet Pending Studies Studies pending at discharge: no Laboratory Results Hemoglobin A1c Test 02/27/17 23:00 Range/Units Estimated Average Glucose 154 mg/dl Hemoglobin A1c 7.0 H 4.5-5.6 % Lipid Panel Test 02/28/17 06:14 Range/Units Triglycerides Level 239 H 0-150 mg/dl Cholesterol Level 96 0-200 mg/dl HDL Cholesterol 27 mg/dl Cholesterol/HDL Ratio 3.6 LDL Cholesterol, Calculated 21 mg/dl Medical Emergencies . Who to Call and When: Call 911 or go to the Emergency Room if: * If at any time you feel your situation is an emergency * You have tightness or pain in your chest that does not go away with rest or Nitroglycerin * You are very short of breath even with rest . Non-Emergent Contact Non-Emergency issues call your: Primary Care Provider . . "Provider Documentation" section prepared by Duyen Arechiga. . VTE Core Measure Inpt VTE Proph given/why not?: Unfractionated heparin SQ Additional Copies To Jose Villavicencio M.D.
[2017-03-01] MEDS ORDERED: SIMVASTATIN 80 MG TAB PO SCH (21:00)
[2017-03-01] MEDS ORDERED: CARVEDILOL 25 MG TAB PO SCH (21:00)
[2017-03-02] MEDS ORDERED: FUROSEMIDE 40 MG TAB PO SCH (09:00)
[2017-03-02] MEDS ORDERED: SPIRONOLACTONE 25 MG TAB PO SCH (09:00)
[2017-03-02] MEDS ORDERED: LOSARTAN POTASSIUM 25 MG TAB PO SCH (09:00)
== END 2017-03-01 18:57 | disposition home or self-care (01) | DRG 293 ==
LOC: EDBD 22:45 → C.EDA 22:46 → C.2E 02-28 01:03 → EEVIPCON 02-28 01:03 → UNDOADMIN 02-28 01:03 → C.2E 02-28 01:09 → ENRESERV 02-28 01:13
PROVIDERS: ADMIT Internal Medicine; ATTEND Hospitalist
DX: I50.23 Acute on chronic systolic (congestive) heart failure (principal); I25.5 Ischemic cardiomyopathy; I25.10 Atherosclerotic heart disease of native coronary artery without angina pectoris; I11.0 Hypertensive heart disease with heart failure; E11.9 Type 2 diabetes mellitus without complications; J44.9 Chronic obstructive pulmonary disease, unspecified; Z51.81 Encounter for therapeutic drug level monitoring; Z79.899 Other long term (current) drug therapy; Z79.84 Long term (current) use of oral hypoglycemic drugs; Z79.82 Long term (current) use of aspirin; Z87.891 Personal history of nicotine dependence; Z95.810 Presence of automatic (implantable) cardiac defibrillator; Z95.1 Presence of aortocoronary bypass graft